=== PATIENT | female | born 1955 | race Caucasian/White ===

== ENCOUNTER 2016-10-31 12:19 | Outpatient (CLI) | payer MEDICARE | END 2016-10-31 12:20 | LOC: MADLAB 12:19 | PROVIDERS: ATTEND Family Medicine | DX: R19.7 Diarrhea, unspecified (principal) | CPT/HCPCS: 36415; 83630; 87015; 87045; 87046; 87081; 87177; 87324; 87449; 87899 ==

== ENCOUNTER 2018-09-22 08:55 | Outpatient (CLI) | payer MEDICARE ==
--- NOTE | 2018-09-22 11:43 | ULT ---
COMPLETE BILATERAL RENAL ULTRASOUND: HISTORY: Chronic kidney disease. Elevated creatinine. FINDINGS: The right renal outline is somewhat nodular and poorly defined with a somewhat thin renal cortex. Th e right kidney measures 10.6 x 4.4 x 3.5 cm. The left kidney measures 9 x 4.1 x 4.6 cm. The bladder appears unremarkable. There is no renal hydronephrosis. IMPRESSION: 1. Somewhat thinned, irregular cortex of the right kidney without hydronephrosis. 2. No left-sided hydronephrosis. 3. Unremarkable bladder. POS: [facility]
== END 2018-09-22 08:56 | disposition home or self-care (01) ==
LOC: MADULT 08:55
PROVIDERS: ATTEND Internal Medicine Nephrology
DX: N18.3 Chronic kidney disease, stage 3 (moderate) (principal); N28.89 Other specified disorders of kidney and ureter
CPT/HCPCS: 76770

== ENCOUNTER 2020-10-04 13:59 | Outpatient (CLI) | payer MEDICARE ==
[2020-10-04 14:37] LABS: ALT (SGPT) 14 U/L (8-55); AST (SGOT) 14 U/L (5-34); Albumin 3.9 g/dL (3.4-4.8); Alkaline Phosphatase 47 U/L (40-110); Anion Gap 12 mmol/L (10-20); BUN (Urea Nitrogen) 19 mg/dL (9.8-20.1); Bilirubin, Total 0.3 mg/dL (0.2-1.2); Calc. Creatinine Clearance 0 mL/min (70-130); Calcium 8.7 mg/dL (7.8-10.44); Carbon Dioxide 23 mmol/L (23-31); Chloride 112 mmol/L (98-107); Globulin 2.2 g/dL (2.4-3.5); Glucose 105 mg/dL (80-115); Potassium 4.9 mmol/L (3.5-5.1); Protein, Total 6.1 g/dL (5.8-8.1); Sodium 142 mmol/L (136-145)
[2020-10-04 15:41] LABS: Thyroid Stimulating Hormone 1.8727 uIU/mL (0.35-4.94)
[2020-10-04 22:27] LABS: Free T4 (Free Thyroxine) 0.8 ng/dL (0.70-1.48)
== END 2020-10-04 14:00 | disposition home or self-care (01) ==
LOC: MADLAB 13:59
PROVIDERS: ATTEND Family Medicine
DX: R06.02 Shortness of breath (principal); R53.83 Other fatigue; I10 Essential (primary) hypertension; Z79.899 Other long term (current) drug therapy
CPT/HCPCS: 80053; 82607; 84439; 84443

== ENCOUNTER 2024-07-08 13:49 | Emergency (ER) | payer OTHER, MEDICARE ==
[2024-07-08] MEDS ORDERED: ALPRAZolam 0.5 MG TAB ONE (15:46)
== END 2024-07-08 16:15 | disposition home or self-care (01) ==
LOC: MADERS 13:49
DX: S16.1XXA Strain of muscle, fascia and tendon at neck level, initial encounter (principal); S20.219A Contusion of unspecified front wall of thorax, initial encounter; F41.9 Anxiety disorder, unspecified; I10 Essential (primary) hypertension; I69.328 Other speech and language deficits following cerebral infarction; Z87.891 Personal history of nicotine dependence; V89.2XXA Person injured in unspecified motor-vehicle accident, traffic, initial encounter
CPT/HCPCS: 71250; 72125